=== PATIENT | male | born 1945 | race Caucasian/White ===

== ENCOUNTER → 2016-07-08 | Outpatient (REF) | payer MEDICARE, OTHER ==
[~2016-07-08] MED LIST: /ADVA50050; /FENO48TA; /PANT40TA; /QUIN20TA; ACCUPRIL PO; ACCUPRIL20 PO; ACCUPRIL40 PO; ADVAIR250 INHALATION; ALBUTEROL INHALATION; ALDACTON50 PO; ASPI325T; ASPI81TA3; ATROVENTIN PO; BIAXIN500 PO; CLARITIN; CLARITIN10 PO; CORTISPOR OTIC; DOXYCYC100 PO; EFFEXORXL1 PO; EFFEXORXL7 PO; GLUC850T; GLUCOPH850 PO; GLYBURIDE5 PO; HCTZ50 PO; HYDR25TA6; ISORDIL; ISORDIL PO; KLONOPIN05 PO; KLORCON20 PO; LAMI25TA; LASIX40 PO; LIPITOR20 PO; LITH600C; LOPR50TA; LOPRESS50 PO; NAPROSY250 PO; NITR0.4S; NITROSTAT4 SL; NORVASC10 PO; PLAV75TA2; PLAVIX75 PO; POTA20TA; PRAVACHOL4 PO; PREDNISO20 PO; PROTONIX40 PO; SPIR50TA2; TESSALO100 PO; TRICOR145 PO; TRICOR160 PO; TUSSIONEX PO; VENL75TA2; VYTO10TA5; VYTORIN40 PO; XANA0.5T; XANAX0.5 PO; ZOCO40TA; ZOLOFT100 PO; [UNRECOGNIZED DRUG - CODE] PO
[2016-07-08 13:31] LABS: BASO % 0.3 % (0.0-1.0); EOS # 0.1 K/mm3 (0.0-0.50); EOS % 1.1 % (0.0-3.0); LARGE UNSTAINED CELL # 0.1 K/mm3 (0.0-0.4); LARGE UNSTAINED CELL % 1.5 % (0.0-4.0); LYMPH # 1.2 K/mm3 (1.5-4.5); LYMPH % 12.9 % (24.0-44.0); MEAN CORPUSCULAR HEMOGLOBIN 30.8 pg (27.0-33.0); MEAN CORPUSCULAR HGB CONC 33.4 g/dl (32.0-36.5); MEAN CORPUSCULAR VOLUME 92.2 fl (80.0-96.0); MONO # 0.4 K/mm3 (0.0-0.8); MONO % 4.8 % (0.0-5.0); NEUTROPHILS # 7.2 K/mm3 (1.8-7.7); NEUTROPHILS % 79.3 % (36.0-66.0); PLATELET COUNT, AUTOMATED 196 k/mm3 (150-450); RED CELL DISTRIBUTION WIDTH 13.1 % (11.5-14.5)
[2016-07-08 13:43] LABS: ALBUMIN 3.9 GM/DL (3.2-5.2); ALBUMIN/GLOBULIN RATIO 1.56 (1.00-1.93); ALKALINE PHOSPHATASE 75 U/L (45-117); ALT/SGPT 43 U/L (12-78); ANION GAP 12 MEQ/L (8-16); AST/SGOT 24 U/L (15-37); BILIRUBIN,TOTAL 0.5 MG/DL (0.2-1.0); BLOOD UREA NITROGEN 16 MG/DL (7-18); CALCIUM LEVEL 8.7 MG/DL (8.8-10.2); CARBON DIOXIDE LEVEL 28 MEQ/L (21-32); CHLORIDE LEVEL 103 MEQ/L (98-107); FERRITIN 43 NG/ML (26-388); GLOMERULAR FILTRATION RATE > 60.0 (>49); GLUCOSE, FASTING 149 MG/DL (80-110); PERCENT SATURATION 18.8 % (19.7-37.4); POTASSIUM SERUM 3.7 MEQ/L (3.5-5.1); SODIUM LEVEL 143 MEQ/L (136-145); TOTAL IRON BINDING CAPACITY 394 UG/DL (250-450); TOTAL PROTEIN 6.4 GM/DL (6.4-8.2)
[2016-07-08 13:46] LABS: VITAMIN B12 LEVEL 514 PG/ML (247-911)
== END ==
LOC: M LABDRAWP 12:55
PROVIDERS: ATTEND Family Medicine
DX: I10 Essential (primary) hypertension (principal); E11.9 Type 2 diabetes mellitus without complications; Z79.899 Other long term (current) drug therapy; Z79.01 Long term (current) use of anticoagulants

== ENCOUNTER → 2016-11-10 | Outpatient (REF) | payer MEDICARE, OTHER ==
[~2016-11-10] MED LIST changes: +ADV250INH INH; +ALPR0.5T3 PO; +AMLO10TA2 PO; +AMLO25TA PO; +ASPI325T24 PO; -ASPI81TA3; +ASPI81TA3 PO; +ISOS20TAB PO; +LAMO200T PO; +MAG400TA PO; +METF850T4 PO; +METO1TAB7 PO; -NITR0.4S; +NITR0.4S SL; +OXYC1TAB16 PO; +OXYCODONE-ACE; +PANT40TA2 PO; -PLAV75TA2; +PLAV75TA2 PO; +POTA20TA6 PO; +QUIN1TAB15 PO; +ROSU40TA PO; +VENL75TA2 PO; +VENTAER INH
[2016-11-10 13:35] LABS: ALBUMIN 4.1 GM/DL (3.2-5.2); ALBUMIN/GLOBULIN RATIO 1.28 (1.00-1.93); ALKALINE PHOSPHATASE 84 U/L (45-117); ALT/SGPT 29 U/L (12-78); ANION GAP 9 MEQ/L (8-16); AST/SGOT 20 U/L (15-37); BILIRUBIN,TOTAL 0.8 MG/DL (0.2-1.0); BLOOD UREA NITROGEN 16 MG/DL (7-18); CALCIUM LEVEL 9.9 MG/DL (8.8-10.2); CARBON DIOXIDE LEVEL 26 MEQ/L (21-32); CHLORIDE LEVEL 104 MEQ/L (98-107); CHOLESTEROL LEVEL 175 MG/DL (<200); CREATININE FOR GFR 0.68 MG/DL (0.70-1.30); GLOMERULAR FILTRATION RATE > 60.0 (>49); GLUCOSE, FASTING 125 MG/DL (80-110); POTASSIUM SERUM 3.6 MEQ/L (3.5-5.1); SODIUM LEVEL 139 MEQ/L (136-145); TOTAL PROTEIN 7.3 GM/DL (6.4-8.2); TRIGLYCERIDES LEVEL 118 MG/DL (<150)
== END ==
LOC: M SFHCPLAZ 09:44
PROVIDERS: ATTEND Family Medicine
DX: E55.9 Vitamin D deficiency, unspecified (principal); E11.8 Type 2 diabetes mellitus with unspecified complications; Z12.5 Encounter for screening for malignant neoplasm of prostate
CPT/HCPCS: 36415; 80053; 80061; 81001; 82043; 82306; 82550; 83036; 83970; 86140; G0103

== ENCOUNTER 2017-03-04 12:23 | Inpatient (IN) | payer MEDICARE, OTHER ==
[~2017-03-04] VITALS: Ht 172.7 cm; Wt 63.6 kg
[~2017-03-04 12:23] MED LIST changes: -ADV250INH INH; -ALPR0.5T3 PO; -AMLO10TA2 PO; -AMLO25TA PO; -ASPI325T24 PO; -ISOS20TAB PO; -LAMO200T PO; -MAG400TA PO; -METF850T4 PO; -METO1TAB7 PO; -OXYC1TAB16 PO; -OXYCODONE-ACE; -PANT40TA2 PO; -POTA20TA6 PO; -QUIN1TAB15 PO; -ROSU40TA PO; -VENL75TA2 PO; -VENTAER INH
[2017-03-04] MEDS ORDERED: NS 1,000 ML IV SCH ×2 (12:44→16:30)
[2017-03-04] MEDS ORDERED: MAG400TA PO (12:52)
[2017-03-04] MEDS ORDERED: VENTAER INH (12:52)
[2017-03-04] MEDS ORDERED: AMLO10TA2 PO (12:52)
[2017-03-04] MEDS ORDERED: PANT40TA2 PO (12:52)
[2017-03-04] MEDS ORDERED: ALPR0.5T3 PO (12:52)
[2017-03-04] MEDS ORDERED: ROSU40TA PO (12:52)
[2017-03-04] MEDS ORDERED: OXYCODONE-ACE (12:52)
[2017-03-04] MEDS ORDERED: METO1TAB7 PO (12:52)
[2017-03-04] MEDS ORDERED: METF850T4 PO (12:52)
[2017-03-04] MEDS ORDERED: VENL75TA2 PO ×2 (12:52→16:18)
[2017-03-04] MEDS ORDERED: LAMO200T PO (12:52)
[2017-03-04] MEDS ORDERED: QUIN1TAB15 PO (12:52)
[2017-03-04] MEDS ORDERED: POTA20TA6 PO (12:52)
[2017-03-04] MEDS ORDERED: AMLO25TA PO (12:52)
[2017-03-04 13:11] LABS: BASO % 0.2 % (0.0-1.0); EOS % 0.1 % (0.0-3.0); IMMATURE GRANULOCYTE % 0.3 % (0-0); LYMPH # 0.6 10^3/uL (1.5-4.5); LYMPH % 6.5 % (24.0-44.0); MEAN CORPUSCULAR HEMOGLOBIN 30.9 pg (27.0-33.0); MEAN CORPUSCULAR HGB CONC 33.1 g/dl (32.0-36.5); MEAN CORPUSCULAR VOLUME 93.4 fl (80.0-96.0); MONO # 1.6 10^3/uL (0.0-0.8); MONO % 16.4 % (0.0-5.0); NEUTROPHILS # 7.4 10^3/uL (1.8-7.7); NEUTROPHILS % 76.5 % (36.0-66.0); PLATELET COUNT, AUTOMATED 266 10^3/uL (150-450); RED CELL DISTRIBUTION WIDTH 13.2 % (11.5-14.5); WHITE BLOOD COUNT 9.7 10^3/uL (4.0-10.0)
[2017-03-04] MEDS: IPRATROPIUM 0.5MG/ALBUTEROL 2.5MG INH SOL UD 3ML (DUONEB)(J7620) NEB SCH ×3 (13:25→14:01)
[2017-03-04 13:38] LABS: ALBUMIN/GLOBULIN RATIO 0.88 (1.00-1.93); ALKALINE PHOSPHATASE 90 U/L (45-117); ALT/SGPT 21 U/L (12-78); ANION GAP 5 MEQ/L (8-16); AST/SGOT 16 U/L (7-37); BILIRUBIN,DIRECT 0.2 MG/DL (0.0-0.2); BILIRUBIN,TOTAL 0.6 MG/DL (0.2-1.0); BLOOD UREA NITROGEN 19 MG/DL (7-18); CALCIUM LEVEL 9.1 MG/DL (8.8-10.2); CARBON DIOXIDE LEVEL 37 MEQ/L (21-32); CHLORIDE LEVEL 97 MEQ/L (98-107); CREATININE FOR GFR 0.82 MG/DL (0.70-1.30); GLOMERULAR FILTRATION RATE > 60.0 (>49); GLUCOSE, FASTING 118 MG/DL (80-110); POTASSIUM SERUM 4.1 MEQ/L (3.5-5.1); SODIUM LEVEL 139 MEQ/L (136-145); TOTAL PROTEIN 6.4 GM/DL (6.4-8.2)
[2017-03-04 13:42] LABS: METHADONE URINE NEGATIVE (NEGATIVE)
[2017-03-04 13:46] LABS: ABG BASE EXCESS 5.6 (-2.0-2.0); ABG HCO3 34.2 MEQ/L (22.0-26.0); ABG PARTIAL PRESSURE O2 119.7 mmHg (75.0-100.0); ABG STANDARD HCO3 29.5 MEQ/L (22.0-26.0); ABG TOTAL CO2 36.3 MEQ/L (23.0-31.0); ABG pH (ARTERIAL) 7.317 UNITS (7.350-7.450)
--- NOTE | 2017-03-04 13:46 | REP ---
PA and lateral chest: Comparison is 06/23/2013. There is a mass-like density in the right suprahilar zone as an interval change. There is atelectasis in the right upper lobe as an interval change. The left lung is clear. Cardiac size is normal. Mediastinum and bony thorax are unremarkable. Impression: Mass-like density in the right suprahilar zone and atelectasis of the right upper lobe. Recommend CT follow-up. Signed by Mendoza Kessler MD 03/04/2017 01:39 P
[2017-03-04 13:49] LABS: ABG PARTIAL PRESSURE CO2 68.4 mmHg (35.0-45.0)
[2017-03-04] MEDS ORDERED: ISOVUE-370 76% 100ML VIAL (Q9967) As Ordered ONE (14:40)
--- NOTE | 2017-03-04 14:46 | REP ---
CT OF THE BRAIN WITHOUT IV CONTRAST: Comparison is 01/20/2015. I have just now been informed that this case has been marked dictated by someone somehow, but there is no dictation in the voice bank or medical record and no note in [facility] for reasons unknown to this examiner. The case is brought to my attention for the first time at this time. There is no hemorrhage. There is a small scalp contusion versus scalp lesion in the posterior biparietal area. This is unchanged from the prior study. There is no subdural or epidural hematoma. The cortical stripe is unremarkable. There is no edema, mass effect, or midline shift. There is mild dilatation of the ventricles and sulci compatible with mild diffuse volume loss, unchanged. There are focal zones of hypodensity in the periventricular white matter compatible with chronic microvascular ischemia, unchanged. The visualized paranasal sinuses and mastoid air cells are clear. IMPRESSION: No change from the prior study. There is no hemorrhage, acute infarct or mas. No subdural hematoma. There is a right posterior parietal scalp lesion as described. Signed by Mendoza Kessler MD 03/04/2017 05:39 P
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
[2017-03-04] MEDS ORDERED: ONDANSETRON 4MG/2ML VIAL (J2405) IV PRN (16:00)
[2017-03-04] MEDS ORDERED: ASPI325T24 PO (16:00)
[2017-03-04] MEDS ORDERED: BISACODYL 5 MG TAB PO PRN (16:00)
[2017-03-04 16:02] LABS: ABG BASE EXCESS 5.1 (-2.0-2.0); ABG HCO3 34.2 MEQ/L (22.0-26.0); ABG PARTIAL PRESSURE O2 102.2 mmHg (75.0-100.0); ABG STANDARD HCO3 29.1 MEQ/L (22.0-26.0); ABG TOTAL CO2 36.4 MEQ/L (23.0-31.0); ABG pH (ARTERIAL) 7.303 UNITS (7.350-7.450)
[2017-03-04 16:05] LABS: ABG PARTIAL PRESSURE CO2 70.6 mmHg (35.0-45.0)
[2017-03-04] MEDS ORDERED: OXYC1TAB16 PO (16:07)
[2017-03-04] MEDS ORDERED: ISOS20TAB PO (16:07)
[2017-03-04] MEDS ORDERED: ADV250INH INH (16:18)
--- NOTE | 2017-03-04 16:20 | REP ---
CT of the chest with IV contrast: Comparison is the PA and lateral plain film study earlier today. There is a right suprahilar mass extending into the middle and anterior mediastinum and encasing the right upper lobe bronchus and pulmonary artery and partially casing the encasing the bronchus intermedius. This mass also encases the superior vena cava and the superior vena cava appears narrowed. This mass may represent confluent adenopathy. There is a 2.7 centimeter nodular density with irregular margins laterally in the right upper lobe on image 27. This is nonspecific and could be infiltrate, atelectasis or true lung nodule. There is atelectasis throughout the right upper lobe. There are numerous bulla throughout the lung parenchyma bilaterally. There is a small right pleural effusion in the deep posterior sulcus. Thoracic aorta is unremarkable although the ascending thoracic aorta is encased by the mediastinal mass. Cardiac size is normal. There is no pericardial effusion. I suspect there is a 14 mm left adrenal nodule in the upper abdomen. The visualized upper abdominal contents are otherwise unremarkable. Impression: Left hilar and mediastinal mass, possibly confluent adenopathy encasing the right upper lobe bronchus and pulmonary artery , superior vena cava and ascending thoracic aorta. There is a 2.7 cm spiculated nodule in the right upper lobe. There is diffuse atelectasis throughout the right upper lobe. There are bulla throughout the lung gould bilaterally. There is a small right pleural effusion. There is discoid atelectasis in the right middle lobe. There is questionably a left adrenal nodule. Signed by Mendoza Kessler MD 03/04/2017 04:11 P
[2017-03-04 16:36] LABS: PROLACTIN 4.5 NG/ML (2.1-17.7)
[2017-03-04] MEDS: ALBUTEROL SULFATE 2.5 MG/0.5 ML INH NEB SOLN INH SCH ×3 (18:05→18:35)
[2017-03-04] MEDS ORDERED: LORazepam 2 MG/ML VIAL (J2060) As Ordered ONE (19:19)
[2017-03-04] MEDS ORDERED: GLUCOSE 4 GM CHEW TABLET PO PRN (19:45)
[2017-03-04] MEDS ORDERED: DEXTROSE 50% 50 ML SYRINGE IV PRN (19:45)
[2017-03-04] MEDS ORDERED: LORazepam 2 MG/ML VIAL (J2060) IV PRN ×2 (19:45→21:30)
[2017-03-04] MEDS ORDERED: GLUCAGON FOR INJ 1 MG VIAL (J1610) SC PRN (19:45)
[2017-03-04] MEDS ORDERED: levETIRAcetam INJection 1,000 MG in D5W 100 ML IV ONE (20:00)
[2017-03-04] MEDS ORDERED: ALBUTEROL SULFATE 2.5 MG/0.5 ML INH NEB SOLN NEB ONE (20:15)
[2017-03-04 20:30] LABS: ABG BASE EXCESS -0.7 (-2.0-2.0); ABG HCO3 38.1 MEQ/L (22.0-26.0); ABG PARTIAL PRESSURE O2 80.4 mmHg (75.0-100.0); ABG STANDARD HCO3 23.7 MEQ/L (22.0-26.0); ABG TOTAL CO2 43.6 MEQ/L (23.0-31.0)
[2017-03-04 20:31] LABS: ABG PARTIAL PRESSURE CO2 179.3 mmHg (35.0-45.0); ABG pH (ARTERIAL) 6.945 UNITS (7.350-7.450)
[2017-03-04] MEDS ORDERED: PROPOFOL 1,000 MG/100 ML VIAL As Ordered ONE (20:43)
[2017-03-04] MEDS ORDERED: LORazepam 2 MG/ML VIAL (J2060) IV STA (20:53)
[2017-03-04] MEDS ORDERED: SUCCINYLCHOLINE INJ 200 MG/10 ML VIAL (J0330) IV STA (20:53)
[2017-03-04] MEDS ORDERED: SENOKOT S TAB PO SCH (21:00)
[2017-03-04] MEDS ORDERED: MAGNESIUM OXIDE 400 MG TAB (MAG-OX) PO SCH (21:00)
[2017-03-04] MEDS ORDERED: QUINAPRIL 20 MG TAB PO SCH (21:00)
[2017-03-04] MEDS ORDERED: levETIRAcetam 250MG TABLET (KEPPRA) PO SCH (21:00)
[2017-03-04] MEDS ORDERED: dexameTHASONE 20 MG/5 ML VIAL (J1100) IV ONE (21:00)
[2017-03-04] MEDS ORDERED: HumaLOG INSULIN (NovoLOG) PER UNIT SC SCH (21:00)
[2017-03-04] MEDS ORDERED: lamoTRIgine 100MG TAB PO SCH (21:00)
[2017-03-04] MEDS ORDERED: VENLAFAXINE 37.5 MG TAB PO SCH (21:00)
[2017-03-04] MEDS ORDERED: PROPOFOL 1,000 MG in APPROPRIATE DILUENT 1 EA IV SCH (21:00)
[2017-03-04] MEDS ORDERED: ISOSORBIDE DIN. (ISORDIL) 20 MG TAB PO SCH (21:00)
[2017-03-04] MEDS ORDERED: MORPHINE SULF IN 0.9% NACL 100 MG in APPROPRIATE DILUENT 1 EA IV SCH ×2 (21:30)
[2017-03-04 22:16] VITALS: BP 138/87
[2017-03-04] MEDS ORDERED: METAL LOCK LOOP XX ONE (22:47)
--- NOTE | 2017-03-04 23:10 | CCN ---
DATE: 03/04/2017 I was called urgently by Dr. Spence for this patient who was unconscious and hypoxic. Apparently he had been in the emergency room having altered levels of consciousness, thought to be having seizures, was being treated for seizure activity. Would have intermittent periods of recovery. There was a new findings on chest CT suggesting a lung mass. Shortly after he was admitted and still in the emergency room the patient had altered mental status and became cyanotic. Dr. Spence at bedside concerned and called me immediately. On my arrival to the room the blood gas had just returned with a pCO2 of 179. The patient was unconscious , having shallow respirations with central cyanosis and central rubor. Scleral were edematous. CT scan showed SVC syndrome. Contrast did not pass through the SVC after administration. The patient was intubated after a discussion with the family and field agronomist radiation oncology. There is no radiation services at this point in time and I suggested that the patient be treated with Decadron and be transferred for urgent treatment, however, the patient's family has decided to make the patient COMFORT MEASURES only based on his previously expressed wishes that he would not want to go through this. After extensive discussion with the family and Dr. Spence it was decided to make the patient COMFORT MEASURES: Vital signs: Initially pulse is 109, blood pressure is 162/87, pulse oximetry is 85% on 15 liters non-rebreather. As mentioned above he is unconscious, shallow breathing. HEENT: Scleral icterus. Pupils constricted, barely reactive. Mucous membranes are moist. Tongue is midline. Neck is supple, but again head and neck are red with some cyanosis and jugular veins are distended. Cardiac: Distant S1, S2 without audible murmur, rub or gallop. He is tachycardiac. No lower extremity edema. Pulmonary: Decreased breath sounds throughout without rales, rhonchi or wheezes. No dullness to percussion. Abdomen is scaphoid, appears that there has been significant weight loss. Liver edge barely palpable. No discernible hepatosplenomegaly. No bruits. Extremities: No cyanosis, clubbing or edema. Musculoskeletal: Definite muscle wasting. No unilateral weakness could be obtained. CT imaging, unfortunately the emergency room states they were not called with the results of the CT scan. I personally reviewed the CT scan and diagnosis SVC syndrome. There is a mass encompassing the SVC allowing very little flow of contrast to the SVC. The mediastinum is loaded with mass. There is also abnormalities in the right upper lobe suggesting malignancy through both lung gould. IMPRESSION: Abnormal chest CT with SVC syndrome. After lengthy discussion with multiple physicians, spending over an hour coordinating care, the patient's family has decided to withdraw care making the patient comfortable and palliative measures to ensue. I expect the patient to pass with the next few hours. DO NOT RESUSCITATE (DNR) was placed in the chart. , daughter and brother were all in agreement. MTDD
[2017-03-05] MEDS ORDERED: HumaLOG INSULIN (NovoLOG) PER UNIT SC SCH (07:30)
[2017-03-05] MEDS ORDERED: amLODIPine 10 MG TAB PO SCH (09:00)
[2017-03-05] MEDS ORDERED: ASPIRIN ENTERIC 325 MG TAB PO SCH (09:00)
[2017-03-05] MEDS ORDERED: ENOXAPARIN 40 MG/0.4 ML SYRINGE (J1650) SC SCH (09:00)
[2017-03-05] MEDS ORDERED: VENLAFAXINE 37.5 MG TAB PO SCH (09:00)
[2017-03-05] MEDS ORDERED: PANTOPRAZOLE 40MG TAB (PROTONIX) PO SCH (09:00)
[2017-03-05] MEDS ORDERED: METOPROLOL SUCC (TopROL XL) 50MG **XL** TAB PO SCH (09:00)
[2017-03-05] MEDS ORDERED: ROSUVASTATIN 10 MG TAB (CRESTOR) PO SCH (09:00)
[2017-03-05] MEDS ORDERED: CLOPIDOGREL 75 MG TAB PO SCH (09:00)
--- NOTE | 2017-03-05 10:36 | IPNPDOC ---
Text Note Date of Service The patient was seen on 03/05/17. NOTE Subjective: Patient seen at bedside accompanied by family members. Is currently on comfort measures. Family reports his needs are being met at this time. They had no further concerns. Objective: Vital signs: Please see below. Gen.: In no acute distress. Patient is nonverbal, he is lying on hospital bed, appears cachectic. Respiratory: Breathing is steady, unlabored, slow. Assessment/plan: This is a 71-year-old male with SVC syndrome. His needs appears to be met at this time. Patient's family withdrawn care earlier today, and placed him on SIDER. He is DNR status at this time. VS,Fishbone, I+O VS, Fishbone, I+O Laboratory Tests 03/04/17 12:56 03/04/17 12:57 Red Blood Count 4.88, Mean Corpuscular Volume 93.4, Mean Corpuscular Hemoglobin 30.9, Mean Corpuscular Hemoglobin Concent 33.1, Red Cell Distribution Width 13.2 , Neutrophils (%) (Auto) 76.5 H, Lymphocytes (%) (Auto) 6.5 L, Monocytes (%) ( Auto) 16.4 H, Eosinophils (%) (Auto) 0.1, Basophils (%) (Auto) 0.2, Neutrophils # (Auto) 7.4, Lymphocytes # (Auto) 0.6 L, Monocytes # (Auto) 1.6 H, Eosinophils # (Auto) 0.0, Basophils # (Auto) 0.0 Vital Signs Date Time Temp Pulse Resp B/P (MAP) Pulse Ox O2 Delivery O2 Flow Rate FiO2 03/04/17 22:27 20 95 50 03/04/17 22:16 89 138/87 (104) 03/04/17 19:45 Non-Rebreather 15.0 GME ATTESTATION GME ATTESTATION My preceptor for this patient encounter was physically present in the building during the encounter and was fully available. As needed, all aspects of the patient interview, examination, medical decision making process, and medical care plan development were reviewed and approved by the preceptor. Preceptor is aware and concurs with the plan as stated in the body of this note and will attest to such by his/her cosignature. MICK MARTINEZ DO Mar 05, 2017 10:36
[2017-03-05] MEDS ORDERED: SUCCINYLCHOLINE 100 MG/5 ML SYRINGE (J0330) ONE (11:05)
--- NOTE | 2017-03-06 06:32 | ECGEPIP ---
Stationary ECG Study [facility] - ED Test Date: 2017-03-04 Pat Name: RANDY JONAS Department: Room: - Gender: M Major Gifts Director: tc : 1945 Requested By: STACIE HEAD Order Number: [id number] Reading MD: Yassine Reynolds Measurements Intervals [place] Rate: 86 P: 70 [place]: 188 QRS: -78 QRSD: 150 T: 65 QT: 396 QTc: 474 Interpretive Statements SINUS RHYTHM RIGHT BUNDLE BRANCH BLOCK INFERIOR MYOCARDIAL INFARCTION, POSSIBLY ACUTE ACUTE TX CLINICALLY CORRELATE Electronically Signed On 03-06-2017 6:32:04 EST by Yassine Reynolds
--- NOTE | 2017-03-07 06:14 | DSES ---
DATE OF ADMISSION: 03/04/2017 DATE OF EXPIRATION: 03/06/2017 CONSULTATIONS: Dr. Herrera Onofre PRIMARY CARE PROVIDER: Dr. 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 SECONDARY DIAGNOSES: 1. Toxic metabolic encephalopathy secondary to lung cancer. 2. Probable seizure. 3. History of coronary artery disease. 4. History of diabetes. 5. Hyperlipidemia. 6. Daily marijuana use. 7. Dementia with memory loss. HISTORY: Saurav Francisco is a 71-year-old patient of Dr. Álvarez who was admitted with altered mental status, was found to have a large lung mass. He was cyanotic and in respiratory distress. He was seen by pulmonary/Dr. Onofre, intubated, but then further workup suggested advanced cancer, superior vena cava syndrome. The only treatment was emergency radiation, which was not available. The family requested comfort measures. Care was deescalated. The patient was placed on comfort measures and on 03/06/2017.
[2017-03-09 00:06] LABS: ACETAMINOPHEN Negative ug/mL (10-30); AMITRIPTYLINE None Detected (Not Estab.); BUTALBITAL None Detected ug/mL (1-10); DESIPRAMINE None Detected (Not Estab.); DIAZEPAM None Detected ug/mL (0.1-0.9); DOXEPIN None Detected (Not Estab.); ETHANOL Negative % (0.000-0.010); NORCHLORDIAZEPOXIDE None Detected ug/mL (0.1-0.6); NORDIAZEPAM None Detected ug/mL (0.1-1.4); NORDOXEPIN None Detected (Not Estab.); NORTRIPTYLINE None Detected ng/mL (50-150); PENTOBARBITAL None Detected ug/mL (1-5); PHENOBARBITAL None Detected ug/mL (15-40); PHENYTOIN None Detected ug/mL (10.0-20.0)
== END 2017-03-06 01:42 | disposition expired | DRG 180 ==
LOC: M ED 12:23 → UNDOADMIN 15:56 → M ED INP 15:56 → M MS5PR 22:51
PROVIDERS: ADMIT Internal Medicine Nephrology; ATTEND Family Medicine
DX: C34.90 Malignant neoplasm of unspecified part of unspecified bronchus or lung (principal); G92 Toxic encephalopathy; J96.01 Acute respiratory failure with hypoxia; J96.02 Acute respiratory failure with hypercapnia; E43 Unspecified severe protein-calorie malnutrition; I87.1 Compression of vein; I25.10 Atherosclerotic heart disease of native coronary artery without angina pectoris; E78.5 Hyperlipidemia, unspecified; J44.9 Chronic obstructive pulmonary disease, unspecified; I10 Essential (primary) hypertension; G47.33 Obstructive sleep apnea (adult) (pediatric); G40.909 Epilepsy, unspecified, not intractable, without status epilepticus; K21.9 Gastro-esophageal reflux disease without esophagitis; Z87.891 Personal history of nicotine dependence; Z79.899 Other long term (current) drug therapy; Z79.82 Long term (current) use of aspirin; Z88.0 Allergy status to penicillin; Z88.8 Allergy status to other drugs, medicaments and biological substances